=== PATIENT | male | born 1930 | race Caucasian/White ===

== ENCOUNTER 2019-08-10 20:05 | Inpatient (IN) | payer OTHER ==
[~2019-08-10] VITALS: Ht 177.8 cm; Wt 59.9 kg
[2019-08-10 20:05] VITALS: BP 120/58
--- NOTE | 2019-08-10 20:05 | NUR ---
BROUGHT IN AMBULANCE WITH C/O ALOC,CONFUSED, DEMENTIA, AGONAL BREATHING, SLUGGISH,SINUS TACHYCARDIA, BAGGING, PUT ON REBREATHER.SAO2, 96%.DNR, NO VENTILATOR, WITH ANTIBIOTICS, SELECTIVE TREATMENTS, NO ARTIFICAIL MEANS OF NUTRITION.
--- NOTE | 2019-08-10 20:07 | NUR ---
89 YEAR OLD MALE BIBA FROM [facility], EMS STATES THEY WERE TOLD PATIENT WAS LAST SEEN NORMAL 10MINUTES PRIOR TO THEIR ARRIVAL. PATIENT ARRIVED AT 20:00, BVM AT 92%. RT AT BEDSIDE, PLACED PATIENT ON 15L NON-REBREATHER MASK. PATIENT SATURATION 88%, RR 24. BREATHING LABORED WITH RHONCHI THROUGHOUT, PLACED IN HIGH ARENAS POSITION. PATIENT GCS 3 (E1,V1,M1). BS 189. HR 96, BP 120/58, TEMP 98.2. PATIENT HAS DNR SIGNED. DR ODELL AT BEDSIDE. PMH - CHF, ENCEPALOPATHY, DEMENTIA, CABG ALLERGIES - SULFA, PCN
[2019-08-10] MEDS ORDERED: NACL 0.9% 1,800 ML IV ONE (20:15)
[2019-08-10] MEDS ORDERED: VANCOMYCIN 1,000 MG in DEXTROSE 5% 250 ML IV ONE (20:15)
[2019-08-10] MEDS ORDERED: MEROPENEM 500 MG in NACL 0.9% 100 ML IV ONE (20:15)
[2019-08-10] MEDS ORDERED: MEROPENEM 500 MG VIAL IV ONE (20:29)
[2019-08-10] MEDS ORDERED: FURO-570 PO (20:40)
[2019-08-10] MEDS ORDERED: LACT10SO1 PO (20:40)
[2019-08-10] MEDS ORDERED: SIMV40TA1 PO (20:40)
[2019-08-10] MEDS ORDERED: FERR325E14 PO (20:40)
[2019-08-10] MEDS ORDERED: SYN.05 PO (20:40)
[2019-08-10] MEDS ORDERED: ASCO500T45 PO (20:40)
[2019-08-10] MEDS ORDERED: MEMA10TA PO (20:40)
[2019-08-10] MEDS ORDERED: ACET-2619 PO (20:40)
[2019-08-10] MEDS ORDERED: MULT-153 PO (20:40)
--- NOTE | 2019-08-10 20:40 | NUR ---
PATIENT NONRESPONSIVE, O2 SATURATION DROPPED FROM 92% TO 88% DR ODELL AWARE
[2019-08-10 20:53] LABS: HEMATOCRIT 42.9 % (36-52); HEMOGLOBIN 13.4 g/dL (12.0-18.0); MEAN CORPUSCULAR HEMOGLOBIN 33 pg (27-31); MEAN CORPUSCULAR HGB CONC 31 g/dL (33-37); MEAN CORPUSCULAR VOLUME 104.8 fL (80-94); PLATELET COUNT (AUTO) 96 K/uL (140-450); RED BLOOD CELL COUNT(AUTO) 4.09 MIL/uL (4.20-6.10); RED CELL DISTRIBUTION WIDTH 17.4 % (11.6-13.7); WHITE BLOOD COUNT (AUTO) 11.7 K/uL (4.8-10.8)
[2019-08-10] MEDS ORDERED: LORazepam 2 MG/ML VIAL IM/IVP PRN (20:55)
[2019-08-10] MEDS ORDERED: ONDANSETRON 4 MG/2 ML VIAL IM/IVP PRN (20:55)
[2019-08-10] MEDS ORDERED: MORPHINE SULFATE 2 MG/ML SYR IVP PRN (20:55)
--- NOTE | 2019-08-10 21:10 | NUR ---
PATIENT URINE OBTAINED, PATIENT O2 SATURATION DROPPED FROM 88% TO 83% DR ODELL MADE AWARE. AOX0
[2019-08-10 21:25] VITALS: BP 128/50
--- NOTE | 2019-08-10 21:25 | NUR ---
ADMITTED 89 MALE FROM ER VIA [facility] WITH NONREBREATHER MASK 15L. O2 SAT FLUCTUATING BETWEEN 85% - 70%. TELE PATIENT. RT AT BEDSIDE TO DRAW ABGs. PATIENT IS NON RESPONSIVE. COARSE CRACKLES NOTED. INITIAL SKIN ASSESSMENT DONE. SKIN INTACT WITH IV NS STILL INFUSING ON THE LEFT FOREARM 22G. HEPLOCK ON RIGHT AC 20G. MRSA NARES SPECIMEN COLLECTED AND SENT TO LAB. ORIENTED PATIENT TO ROOM, CALL LIGHT AND HOSPITAL ROUTINES. FALL RISK PROTOCOL IN PLACE. HEAD OF BED ELEVATED. CALL LIGHT WITHIN REACH. WILL CONTINUE TO MONITOR.
--- NOTE | 2019-08-10 21:30 | NUR ---
Patient will be admitted to care of DR DENTON. Admited to TELE. Will go to room 108A. Belongings list completed. Report to KYLER RIVERA.
--- NOTE | 2019-08-10 22:14 | NUR ---
REPORTED ABG RESULT TO DR GOULD, RESIDENT. WILL SEE PATIENT AGAIN.
[2019-08-10] MEDS ORDERED: VANCOMYCIN 1,000 MG VIAL ONE (22:15)
[2019-08-10 22:16] LABS: LYMPHOCYTES % (MANUAL) 3 % (20-46); MONOCYTES % (MANUAL) 2 % (5-12)
[2019-08-10] MEDS ORDERED: DEXT 5% / NACL 0.9% 500 ML IV SCH (22:25)
[2019-08-10 23:23] LABS: ALBUMIN 2.8 g/dL (3.4-5.0); AMYLASE 74 U/L (25-115); ANION GAP 7.4 (8-16); ASPARTATE AMINOTRANSFERASE 32 U/L (15-37); CARBON DIOXIDE 38.1 mmol/L (21-32); CHLORIDE 126 mmol/L (98-107); CREATININE 1.6 mg/dL (0.7-1.3); GLUCOSE 131 mg/dL (74-106); LIPASE 181 U/L (73-393); MAGNESIUM 2.1 mg/dL (1.8-2.4); PHOSPHORUS 4.1 mg/dL (2.5-4.9); THYROID STIMULATING HORMONE 2.47 uIU/mL (0.34-3.74); TOTAL BILIRUBIN 1.3 mg/dL (0.0-1.0); UREA NITROGEN, BLOOD 38 mg/dL (7-18)
[2019-08-10 23:32] LABS: POTASSIUM 2.5 mmol/L (3.5-5.1); SODIUM SERUM 169 mmol/L (136-145)
[2019-08-10 23:33] LABS: PROTHROMBIN TIME > 120.0 secs (10.8-13.4)
[2019-08-10] MEDS ORDERED: DEXT 5% / NACL 0.45% 1,000 ML IV SCH (23:35)
--- NOTE | 2019-08-10 23:38 | NUR ---
REPORTED ELEVATED SODIUM, LOW POTASSIUM RESULTS TO MD. REPORTED ELEVATED TROPONIN, PROTIME AND INR TO MD. MD TO SEE PATIENT.
[2019-08-10] MEDS ORDERED: KCL 20 MEQ/WATER INJ PREMIX 200 ML IV SCH (23:55)
[2019-08-11 00:10] VITALS: BP 72/34
--- NOTE | 2019-08-11 00:10 | NUR ---
CALLED DR. GOULD TO LET HER KNOW THAT PT BP IS DROPPING 72/34, HR-64,R-14.VERY SHALLOW AND O2 SAT 64%. TEMP 97.3 .SHE SAID SHE WILL COME AND SEE PT.
--- NOTE | 2019-08-11 00:16 | NUR ---
DR. GOULD CAME AND CHECKED ON PT. UNABLE TO GET V/S . NOT BREATHING, NO PULSE. TELE MONITOR. ASYSTOLE .RT CAME AND ATTACHED THE EKG TO CONFIRM. PT PRONOUNCE AT THIS TIME.
--- NOTE | 2019-08-11 00:20 | NUR ---
DR. GOULD SAID SHE HAS BEEN TRYING TO GET HOLD OF FAMILY SINCE PT'S ADMISSION BUT JUST LEFT MESSAGE TO [place] AND ANOTHER FAMILY MEMBER. WILL TRY TO CALL THEM AGAIN.
--- NOTE | 2019-08-11 00:42 | NUR ---
LEFT MESSAGE TO [facility]. WILL WAIT FOR CALL BACK.
--- NOTE | 2019-08-11 00:54 | NUR ---
ABLE TO CONTACT [facility]. TALKED TO VAUGHN LOPEZ. SHE SAID PT IS OK TO RELEASE WITH REFERENCE ID # [id number]
--- NOTE | 2019-08-11 01:00 | NUR ---
ARNIE FORTUNE FROM [facility] CALLED AND GAVE ANOTHER PHONE # OF FAMILY [facility] . I CALLED AND LEFT MESSAGE. WILL ALSO WAIT FOR CALL BACK.
--- NOTE | 2019-08-11 01:35 | NUR ---
CALLED [facility] [phone] @[phone]. DARWIN CALLED ME BACK. GAVE HER INFORMATIONS ABOUT PT . SHE GOT FAMILY MEMBERS PHONE NUMBERS AND SHE TRIED TO CALL THEM AND JUST LEFT MESSAGE TO [place] SANCHEZ,,SATYA AZAR AND MARTY SANCHEZ.
--- NOTE | 2019-08-11 04:21 | NUR ---
[facility] BUR[facility] CALLED BACK @[phone] AND MADE AWARE OF THE PT'S . GAVE THE MORTUARY W/C IS [facility] ADDRESS: [id number] [place] [id number]. TEL # . CALLED THIS # AND TALKED TO BANDAR.GAVE HER ALL INFORMATIONS THEY NEED AND PT CAN BE [facility]ER IN 60 -90 MINUTES ACCORDING TO HER.
--- NOTE | 2019-08-11 04:40 | NUR ---
CALLED [place] SANCHEZ AND LET HIM KNOW ABOUT THE TIME PT WILL BE OCCUPATIONAL THER BY MORTUARY. HE GAVE TELEPHONE CONSENT WITH MIGUEL PARRACOUNTER SALES PERSON TO RELEASE THE BODY TO MORTUARY. MIGUEL ACE FINANCIAL ANALYST ACCOUNTANT AWARE.
--- NOTE | 2019-08-11 06:12 | NUR ---
[facility] CAME AND PICKED UP THE BODY. WITNESSED BY ME AND MIGUEL PARRAHOLE PUNCHER STRAP.
== END 2019-08-11 00:16 | disposition expired | DRG 177 ==
LOC: MED 20:05 → MTU 20:29
PROVIDERS: ADMIT General Practice; ATTEND General Practice
DX: J69.0 Pneumonitis due to inhalation of food and vomit (principal); J96.01 Acute respiratory failure with hypoxia; N17.0 Acute kidney failure with tubular necrosis; I13.0 Hypertensive heart and chronic kidney disease with heart failure and stage 1 through stage 4 chronic kidney disease, or unspecified chronic kidney disease; E87.0 Hyperosmolality and hypernatremia; E44.0 Moderate protein-calorie malnutrition; Z68.1 Body mass index [BMI] 19.9 or less, adult; Z66 Do not resuscitate; I50.9 Heart failure, unspecified; N18.9 Chronic kidney disease, unspecified; I48.91 Unspecified atrial fibrillation; I25.10 Atherosclerotic heart disease of native coronary artery without angina pectoris; I34.0 Nonrheumatic mitral (valve) insufficiency; Z88.0 Allergy status to penicillin; Z88.2 Allergy status to sulfonamides; Z95.1 Presence of aortocoronary bypass graft; I46.9 Cardiac arrest, cause unspecified
CPT/HCPCS: 36415; 36600; 71045; 80048; 80053; 82140; 82150; 82803; 83036; 83605; 83690; 83735; 83880; 84100; 84443; 84484; 85025; 85610; 85730; 87040; 93005; 96365; 99291; J2185; J2270; J3370; J7030; J7060; Q0092